=== PATIENT | female | born 1965 | race Caucasian/White ===

== ENCOUNTER 2017-05-30 16:55 | Emergency (ER) | payer BC ==
--- NOTE | 2017-05-30 17:24 | ERNOTE ---
Medical Problem HPI - General Chief Complaint: Screening, Blood Pressure Time Seen by Provider: 05/30/17 17:08 Source: patient Exam Limitations: no limitations - Immun/Allergies/Home Medications Immunizations: IMMUNIZATION HX Immunizations Up to Date Yes History of Influenza Vaccine No Hx Pneumococcal Vaccination No Allergies/Adverse Reactions: Allergies Sulfa (Sulfonamide Antibiotics) [Sulfa(Sulfonamide Antibiotics)] Allergy (Severe , Verified 05/30/17 17:02) rash latex Allergy (Intermediate, Verified 05/30/17 17:02) Hives Home Medications: HOME MEDICATIONS Levothyroxine Sodium [Tirosint] 88 mcg PO DAILY 06/30/15 [Last Taken Unknown] Potassium Chloride [K-Dur] 10 meq PO DAILY 09/30/15 [Last Taken Unknown] Citalopram Hydrobromide [Celexa] 40 mg PO DAILY 10/12/15 [Last Taken Unknown] Cholecalciferol [Vitamin D] 2,000 unit PO DAILY 05/30/17 [Last Taken Unknown] Potassium Chloride [K-Dur] 40 meq PO BID #20 tablet 05/30/17 [Last Taken Unknown ] - History of Present History Narrative: Patient had abdominal pain earlier this morning which has resolved. After she woke up from a nap this afternoon she didn't feel quite right and light headed. When she took her blood pressure it was elevated at 166/99. She was concerned about the pressure and came to the ER. She has not history of HTN, at a check up two months ago her blood pressure was normal Review of Systems - Review of Systems Constitutional: Present: recent illness - seasonal allergies. Absent: fever EYE: Absent: vision changes ENT: Present: nose congestion. Absent: sore throat Respiratory: Absent: shortness of breath, cough Cardiology: Absent: chest pain, palpitations Gastrointestinal/Abdominal: Absent: nausea Genitourinary: Present: no symptoms reported Musculoskeletal: Absent: back pain Neurological: Present: dizziness/light-headedness. Absent: headache, weakness, numbness - Patient's Past Medical History Patient History - Medical: Anemia, Depression, Hypothyroidism, UTI'S, Other Patient History - Cardiac/Respiratory: No pertinent hx Patient History - Cancer: No Hx of Cancer Patient History - Surgical Procedures: Appendectomy, Colon Resection, Hysterectomy, Other Patient History - Other: None LMP (females 10-50): Menopausal - Family History Father Family History - Medical: No pertinent hx Family History - Cardiac/Respiratory: Asthma, Hypertension Mother Family History - Medical: Renal Disease - Social History Living Situations: home Abuse History: No History of abuse Psych History: Hx of Depression, Current tx/ever been on anti-depressants or anti-anxiety meds Smoking Status: Current every day smoker Have you smoked in the past 12 months: Yes Alcohol Use: none Drug Use: none - Immunizations Immunizations Up to Date: Yes Hx Pneumococcal Vaccination: No History of Influenza Vaccine: No Physical Exam - Physical Exam General Appearance: Present: wd/wn, alert, no apparent distress Head Exam: Present: normal inspection Eye Exam: Normal inspection: bilateral, PERRL: bilateral Ears, Nose, Throat: Present: normal ENT inspection, normal pharynx Respiratory: Present: no respiratory distress, normal breath sounds, no accessory muscle use, lungs clear Cardiovascular/Chest: Present: regular rate, rhythm, no murmur Extremity Exam: Present: no edema Neurological Exam: Present: alert, oriented, normal mood/affect, no motor/ sensory deficits Skin Exam: Present: normal color, warm/dry ED Progress - Results and Orders Patient's Lab Results:: I have reviewed the patient's lab results. - Vital Signs Patient's Vital Signs:: I have reviewed the patient's vital signs. Vital Signs: Vital Signs 05/30/17 16:57 Temperature 36.9 C Pulse Rate 85 Respiratory 16 Rate Blood Pressure 159/95 O2 Sat by Pulse 98 Oximetry - Progress/Reassessment Chief Complaint: Screening, Blood Pressure Progress Note-Subjective: 05/30/17 17:59 discussed results with patient and sister patient allergic to sulfa, last culture resistant to macrobid, will hold off on antibiotics will culture results are available Departure Clinical Impression: Hypokalemia, Elevated BP without diagnosis of hypertension - Departure Disposition: Home self-care Condition: Good Instructions: Hypokalemia Additional Instructions: call Dr Mccullough's office tomorrow for an out patient repeat potassium test before the weekend (take 40mEq twice a day for the next four days) for a follow up appointment for your blood pressure record daily blood pressure readings you will be called with the results of the urine culture Referrals: Surya Hastings MD [Primary Care Provider] - Prescriptions: Potassium Chloride [K-Dur] 40 meq PO BID #20 tablet
[2017-05-30 17:27] LABS: Urine Bilirubin Negative (NEGATIVE); Urine Blood Negative /ul (NEGATIVE); Urine Ketone Negative (NEGATIVE); Urine Nitrite Negative (NEGATIVE); Urine Protein Negative (NEGATIVE); Urine Specific Gravity <=1.005 SP.GR. (1.005-1.010); Urine Urobilinogen Normal (NORMAL)
[2017-05-30 17:35] LABS: Hematocrit 39.7 % (37.0-47.0); Hemoglobin 13.1 gm/dL (12.5-16.0); Mean Cell Volume 89.8 fl (78-100); Mean Corpuscular Hemoglobin 29.6 pg (27-31); Mean Platelet Volume 8.7 fl (6.0-9.5); Neutrophil # 6.1 K/mm3 (1.3-6.0); Neutrophil % 62.8 % (42-75.0); Platelet Count 279 K/mm3 (150-450); Red Blood Count 4.42 M/mm3 (4.2-5.4); Red Cell Distribution Width 13.9 % (11.5-14.0); White Blood Count 9.7 K/mm3 (4.0-10.5)
[2017-05-30 17:40] LABS: Urine Appearance Clear; Urine Color Yellow; Urine RBC None Seen /hpf (0-5); Urine WBC 0-5 /hpf (0-5)
[2017-05-30 17:41] LABS: Urine Bacteria TRACE
[2017-05-30 17:51] LABS: Albumin * 3.3 gm/dl (3.4-5.0); Anion Gap 10.3 mmol/L (6.8-13.8); BUN/Creatinine Ratio 9.2 (9.0-21.6); Bilirubin, Total 0.2 mg/dL (0.0-1.1); Ca. Corrected For Albumin 9.1 mg/dL (8.4-10.2); Calcium * 8.9 mg/dL (7.9-10.9); Carbon Dioxide 28.5 mmol/L (24-32.6); Potassium 2.8 mmol/L (3.4-4.6); Total Protein 7.2 gm/dL (6.2-8.2)
[2017-05-30 18:13] VITALS: BP 151/86
== END 2017-05-30 18:05 | disposition home or self-care (01) ==
LOC: ER 16:55
DX: E87.6 Hypokalemia (principal); R03.0 Elevated blood-pressure reading, without diagnosis of hypertension; F17.200 Nicotine dependence, unspecified, uncomplicated

== ENCOUNTER 2019-07-01 11:40 | Observation (INO) ==
[2019-07-01] MEDS ORDERED: METHYLPREDNISOLONE SOD SUCC/PF 125 MG/2 ML VIAL IM ONE (12:58)
[2019-07-01] MEDS ORDERED: ALBUTEROL SULFATE/IPRATROPIUM 3 ML NEBU IH ONE (12:58)
[2019-07-01] MEDS ORDERED: ALBUTEROL SULFATE 2.5 MG/0.5 ML VIAL.NEB IH ONE ×3 (12:59→14:51)
[2019-07-01 13:34] LABS: Hematocrit 43.2 % (37.0-47.0); Hemoglobin 14.5 gm/dL (12.5-16.0); Mean Cell Volume 96.9 fl (78-100); Mean Corpuscular Hemoglobin 32.5 pg (27-31); Mean Corpuscular Hgb Conc 33.6 g/dl (32-36); Mean Platelet Volume 10.6 fl (8-12.5); Neutrophil # 3.1 K/mm3 (1.3-6.0); Neutrophil % 66.8 % (42-75.0); Platelet Count 198 K/mm3 (150-450); Red Blood Count 4.46 M/mm3 (4.2-5.4); White Blood Count 4.6 K/mm3 (4.0-10.5)
[2019-07-01 13:37] LABS: Albumin * 3.6 gm/dl (3.4-5.0); Anion Gap 13.6 mmol/L (6.8-13.8); BUN/Creatinine Ratio 12.4 (9.0-21.6); Bilirubin, Total 0.1 mg/dL (0.0-1.1); Ca. Corrected For Albumin 8.9 mg/dL (8.4-10.2); Calcium * 8.9 mg/dL (7.9-10.9); Carbon Dioxide 27.9 mmol/L (24-32.6); Potassium 3.5 mmol/L (3.4-4.6); Total Protein 7.6 gm/dL (6.2-8.2)
--- NOTE | 2019-07-01 15:36 | ERNOTE ---
Date of Service: 07/01/19 Time Seen by Provider: 07/01/19 12:53 Stated Complaint: coughing, congestion, fever Presenting Symptoms:: cough, other - SOB Source: patient Exam Limitations: no limitations Immunizations: IMMUNIZATION HX Immunizations Up to Date Yes History of Influenza Vaccine No Hx Pneumococcal Vaccination Yes Allergies/Adverse Reactions: Allergies Sulfa (Sulfonamide Antibiotics) [Sulfa(Sulfonamide Antibiotics)] Allergy (Severe, Verified 07/01/19 12:00) rash latex Allergy (Intermediate, Verified 07/01/19 12:00) Hives Home Medications: HOME MEDICATIONS Cholecalciferol [Vitamin D] 2,000 unit PO DAILY 05/30/17 [Last Taken Unknown] levothyroxine 88 mcg tablet 88 mcg PO DAILY #30 tab 07/12/18 [Last Taken Unknown] acetaminophen 500 mg tablet 500 mg PO Q6H PRN 10/05/18 [Last Taken Unknown] albuterol sulfate 0.63 mg/3 mL solution for nebulization 0.63 mg IH BID PRN ml 10/05/18 [Last Taken Unknown] citalopram 40 mg tablet 40 mg PO DAILY #90 tab 10/24/18 [Last Taken Unknown] gabapentin 300 mg capsule 300 mg PO DAILY 10/24/18 [Last Taken Unknown] trazodone 50 mg tablet 50 mg PO HS #90 tab 10/24/18 [Last Taken Unknown] albuterol sulfate 90 mcg/actuation aerosol inhaler 2 inh IH Q8H PRN #18 g 06/29/19 [Last Taken Unknown] benzonatate 100 mg capsule 200 mg PO TID PRN #20 cap 06/29/19 [Last Taken Unknown] - History of Present Ilness Narrative: Patient presents with cough and SOB for 4 days now. Started . Went to walk in clinic but is no better. SOB with exertion. Mostly dry cough. Feverish. No chest pain. No calf pain or leg swelling. Worse with exertion and better with rest. She can her herself wheezing. Timing: constant, getting worse Severity: severe Frequency/Possible Cause: Reports: illness exposure Modifying Factors - Improves: Reports: rest Modifying Factors - Worsens: Reports: activity Associated Symptoms: Reports: cough, shortness of breath, nasal congestion, fever/chills. Denies: sore throat Prior Treatment: Reports: recently seen. Denies: recently hospitalized, currently on antibiotics Review of Systems - Review of Systems Constitutional: Present: fever ENT: Present: See HPI Respiratory: Present: See HPI Cardiology: Absent: chest pain Gastrointestinal/Abdominal: Absent: abdominal pain Genitourinary: Absent: dysuria Neurological: Absent: weakness All Other Systems: All systems neg except as marked Medical History (Last Reviewed 07/01/19 @ 15:35 by Dillon Lord MD) Gross hematuria (Acute) Insomnia (Chronic) Anxiety and depression (Chronic) Colostomy in place (Chronic) Acute abdominal pain (Acute) Vitamin D deficiency (Chronic) Tobacco abuse (Chronic) Peptic ulcer (Chronic) Hypothyroidism (Chronic) Hypokalemia (Chronic) Hypoglycemia (Chronic) Hypertension (Chronic) Hot flashes (Chronic) Fistula (Chronic) Endometriosis (Chronic) Depression (Chronic) Crohns disease (Chronic) Asthma (Chronic) Anemia (Chronic) Anal cancer (Chronic) Allergic rhinitis (Chronic) COPD (chronic obstructive pulmonary disease) with acute bronchitis (Acute) Bronchitis (Acute) Shoulder sprain or strain (Acute) Contact dermatitis due to poison william (Acute) Abdominal pain (Acute) Hypokalemia (Acute) Left shoulder pain (Acute) Ventral hernia without obstruction or gangrene (Acute) Elevated BP without diagnosis of hypertension (Acute) Surgical History: Surgical History (Last Reviewed 07/01/19 @ 15:35 by Dillon Lord MD) H/O oophorectomy right H/O repair of rotator cuff 2015 right shoulder arthrocopy with mini open rotator cuff repair, biceps tendonesis per Dr Pugh Biceps tendon tear H/O esophagogastroduodenoscopy 2007 [place]- duodenitis, gastritis H/O hernia repair 2000 [place] incisional H/O lumpectomy left breast H/O: hysterectomy 1994 abd- (still has left ovary and 1/2 of right) for endometriosis History of appendectomy 2013 History of bowel resection exploratory laparotomy with extensive lysis of adhesions, partial small bowel resection and appendectomy 2013 History of colon resection 1997 2013 2 in of small bowel removed due to ovarian cyst and stricture Sigmoidoscopy exam 2017 Family History: Family History (Last Reviewed 07/01/19 @ 15:35 by Dillon Lord MD) Brother CVA (cerebral vascular accident) Diabetes Hypertension Sister Hypertension Father Cancer age 54 kidney and lung, COPD (chronic obstructive pulmonary disease) Social History: (Last Reviewed 07/01/19 @ 15:35 by Dillon Lord MD) Social History: Marital status: 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 Service: No Tobacco: Smoking Status: Former smoker Alcohol: alcohol intake: former Substance Use: substance use type: does not use Physical Exam - Physical Exam General Appearance: Present: alert, mild distress, other - mnild tachypnea Head Exam: Present: normal inspection, no evidence of injury Eye Exam: Normal inspection: bilateral, PERRL: bilateral Ears, Nose, Throat: Present: normal ENT inspection, nasal congestion Neck: Present: normal inspection Respiratory: Present: wheezing, other - significant I and E wheezing throughout Cardiovascular/Chest: Present: regular rate, rhythm, normal peripheral pulses Gastrointestinal/Abdominal: Present: normal bowel sounds, nontender, soft Back Exam: Absent: CVA tenderness (R), CVA tenderness (L) Extremity Exam: Present: normal inspection, normal range of motion Neurological Exam: Present: alert, no motor/sensory deficits Skin Exam: Present: normal color, warm/dry Progress - Results and Orders Patient's Lab Results:: I have reviewed the patient's lab results. - Vital Signs Patient's Vital Signs:: I have reviewed the patient's vital signs. Vital Signs: Vital Signs 07/01/19 11:57 07/01/19 13:31 07/01/19 13:34 Temperature 36.6 C Pulse Rate 81 87 83 Respiratory Rate 18 18 18 Blood Pressure 153/85 H O2 Sat by Pulse Oximetry 92 L 92 L 94 07/01/19 14:05 07/01/19 14:53 Temperature Pulse Rate 84 92 Respiratory Rate 18 20 Blood Pressure O2 Sat by Pulse Oximetry 93 91 L - X-Ray X-Ray #1 X-Ray: chest Interpretation: Interp. by me X-ray Comments: I reviewed official radiology report - Progress/Reassessment Chief Complaint: Cough Progress Note-Subjective: 07/01/19 15:31 Patient has wheezing despite Duoneb and then 3 stacked Albuterol nebs. After 4 full treatments she was still wheezing and was 89% RA. Placed on 1L NC oxygen. She was ambulated and sats 84% RA, given her hypoxia observation indicated. She is agreeable as she relaetes this is the most SOB she has ever felt. D/W Dr Ania Corea who will admit. Departure Clinical Impression: COPD exacerbation, Hypoxia - Departure Disposition: Still a patient Condition: Stable Referrals: Surya Hastings MD [Primary Care Provider] -
[2019-07-01] MEDS ORDERED: AZITHROMYCIN 500 MG in DEXTROSE 5 % IN WATER 250 ML IV PRN ×2 (15:40)
[2019-07-01] MEDS ORDERED: FLU VACC QS2019-20(6MOS UP)/PF 60 MCG/0.5 ML SYRINGE IM ONE (16:22)
[2019-07-01] MEDS ORDERED: ACETAMINOPHEN 500 MG TABLET PO PRN (16:57)
[2019-07-01] MEDS: ENOXAPARIN SODIUM 40 MG/0.4 ML SYRG SC SCH (17:27)
[2019-07-01] MEDS: TIOTROPIUM BROMIDE 5 CAP INHALER IH SCH (17:27)
[2019-07-01] MEDS: LEVOFLOXACIN 500 MG TABLET PO SCH (17:27)
--- NOTE | 2019-07-01 17:42 | HP ---
Chief Complaint - Chief Complaint Date of Service: 07/01/19 Time of Service: 17:29 Chief Complaint: Dyspnea History of Present Illness: This is a 54-year-old woman with COPD who developed a respiratory illness 4 days ago. It started with shortness of breath, dyspnea on exertion, nonproductive cough and generally feeling ill. Within the last week she has been exposed to children who had upper respiratory tract infections. She steadily worsened. 2 days ago she had a fever up to 101, and visited the walk-in clinic where she was given Tessalon Perles. They did not help, and she continued to deteriorate. Finally this afternoon she came to the emergency room because she was so short of breath. She has had sweats, but no chills. Over the last 2 days her cough has become productive of clear to white foamy phlegm. 3 breathing treatments in the emergency room today allowed her to cough up even more phlegm. She is now feeling modestly better. There is been no chest pain, and no blood in her sputum. She is more comfortable lying down and sitting up. She is extremely dyspneic today with walking. In the emergency room she was given an initial nebulized treatment with albuterol/ipratropium. This was followed by 2 more albuterol treatments. She was given Solu-Medrol 125 mg IM. She was minimally improved after that, so the decision was made to admit her to an observation bed. There is been no pain in her calves or swelling of extremities. 4 days ago she stopped smoking and she said she does not go to start again. Medical History (Last Reviewed 07/01/19 @ 17:33 by Surya Hastings MD) Gross hematuria (Acute) Insomnia (Chronic) Anxiety and depression (Chronic) Colostomy in place (Chronic) Acute abdominal pain (Acute) Vitamin D deficiency (Chronic) Tobacco abuse (Chronic) Peptic ulcer (Chronic) Hypothyroidism (Chronic) Hypokalemia (Chronic) Hypoglycemia (Chronic) Hypertension (Chronic) Hot flashes (Chronic) Fistula (Chronic) Endometriosis (Chronic) Depression (Chronic) Crohns disease (Chronic) Asthma (Chronic) Anemia (Chronic) Anal cancer (Chronic) Allergic rhinitis (Chronic) COPD (chronic obstructive pulmonary disease) with acute bronchitis (Acute) Bronchitis (Acute) Shoulder sprain or strain (Acute) Contact dermatitis due to poison william (Acute) Abdominal pain (Acute) Hypokalemia (Acute) Left shoulder pain (Acute) Ventral hernia without obstruction or gangrene (Acute) Elevated BP without diagnosis of hypertension (Acute) Surgical History: Surgical History (Last Reviewed 07/01/19 @ 17:33 by Surya Hastings MD) H/O oophorectomy right H/O repair of rotator cuff 2016 right shoulder arthrocopy with mini open rotator cuff repair, biceps tendonesis per Dr Pugh Biceps tendon tear H/O esophagogastroduodenoscopy 2007 [place]- duodenitis, gastritis H/O hernia repair 2000 [place] incisional H/O lumpectomy left breast H/O: hysterectomy 1994 abd- (still has left ovary and 1/2 of right) for endometriosis History of appendectomy 2013 History of bowel resection exploratory laparotomy with extensive lysis of adhesions, partial small bowel resection and appendectomy 2013 History of colon resection 1997 2013 2 in of small bowel removed due to ovarian cyst and stricture Sigmoidoscopy exam 2016 Family History: Family History (Last Reviewed 07/01/19 @ 17:33 by Surya Hastings MD) Brother Hypertension Sister Hypertension Father COPD (chronic obstructive pulmonary disease) Cancer age 54 kidney and lung, Social History: (Last Reviewed 07/01/19 @ 16:15 by Tita Moura RN) Social History: Marital status: 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 Service: No Tobacco: Smoking Status: Former smoker Alcohol: alcohol intake: former Substance Use: substance use type: does not use Review Of Systems (GEN) - Review of Systems Generalized/Overall Review: Present: Fever, Fatigue EENTM: Absent: Eye Pain, Blurred Vision Respiratory: Present: Cough, Shortness of Breath, Wheezing Cardiac: Absent: Chest Pain, Edema, Palpitations Abdominal: Absent: Nausea, Vomiting, Abdominal Pain, Constipation, Diarrhea Genitourinary: Absent: Burning, Frequency Musculoskeletal: Absent: Joint Pain, Back Pain Neurological: Absent: Headache, Tremors Skin: Absent: Dryness, Lesions Endocrine: Absent: Intolerance to Cold, Intolerance to Heat Misc: All systems neg except as marked Immunizations: IMMUNIZATION HX Immunizations Up to Date Yes History of Influenza Vaccine No Hx Pneumococcal Vaccination Yes Allergies/Adverse Reactions: Allergies Allergy/AdvReac Type Severity Reaction Status Date / Time Sulfa (Sulfonamide Allergy Severe rash Verified 07/01/19 16:15 Antibiotics) [Sulfa(Sulfonamide Antibiotics)] latex Allergy Intermediate Hives Verified 07/01/19 16:15 Home Medications: HOME MEDICATIONS Cholecalciferol [Vitamin D] 2,000 unit PO DAILY 05/30/17 [Last Taken Unknown] levothyroxine 88 mcg tablet 88 mcg PO DAILY #30 tab 07/12/18 [Last Taken Unknown] acetaminophen 500 mg tablet 500 mg PO Q6H PRN 10/05/18 [Last Taken Unknown] albuterol sulfate 0.63 mg/3 mL solution for nebulization 0.63 mg IH QID ml 10/05/18 [Last Taken Unknown] citalopram 40 mg tablet 40 mg PO DAILY #90 tab 10/24/18 [Last Taken Unknown] trazodone 50 mg tablet 50 mg PO HS #90 tab 10/24/18 [Last Taken Unknown] albuterol sulfate 90 mcg/actuation aerosol inhaler 2 inh IH Q8H PRN #18 g 06/29/19 [Last Taken Unknown] benzonatate 100 mg capsule 200 mg PO TID PRN #20 cap 06/29/19 [Last Taken Unknown] Exam - Exam Vital Signs: Vital Signs - Last Taken Temp 36.9 C 07/01/19 16:17 Pulse 91 07/01/19 17:13 Resp 20 07/01/19 16:17 BP 129/72 07/01/19 16:17 Pulse Ox 93 07/01/19 16:17 Constitutional: Present: Alert, Oriented x3, Cooperative, Well developed, Well nourished, No distress - Although her work of breathing is increased. She has some mild respiratory distress if she tries to move around in the room. ENT Exam: Present: normal ENT inspection, hearing grossly normal, pharynx normal, TMs normal, nasal congestion Eye Exam: bilateral eye: normal inspection, PERRL, EOMI Neck: Present: normal inspection. Absent: lymphadenopathy (R), lymphadenopathy (L), thyromegaly Back Exam: Present: normal inspection Breasts: Present: Exam deferred Respiratory: Present: chest non-tender, wheezing, expiration (prolonged), other - Mild respiratory distress if she begins to move around Cardiovascular/Chest: Present: normal peripheral pulses, regular rate, rhythm, no edema, no gallop, no JVD, no murmur Peripheral Pulses: carotid (R): 1+, carotid (L): 1+, dorsalis-pedis (R): 1+, dorsalis-pedis (L): 1+ Abdomen: Present: Normal bowel sounds, soft, nontender, nondistended, no hepatospenomegaly, no masses /Rectal: Present: Exam deferred Extremity: Present: normal range of motion, non-tender, normal inspection, no calf tenderness, normal capillary refill Skin Exam: Present: normal color, warm/dry, no cyanosis Lymphatic: Present: no adenopathy Neurologic: Present: normal mood/affect. Absent: motor weakness, depressed affect Appearance: Present: appropriate appearance, appropriate insight, neat, no memory impairment Eye contact: Present: cooperative, good eye contact, normal speech Thoughts: Present: normal thought pattern Diagnostic Studies: Abnormal Lab Results 07/01/19 07/01/19 Range/Units 13:17 13:17 MCH 32.5 H (27-31) pg Monocytes % 9.3 H (0.0-9) % Lymphocytes # 0.96 L (1.5-3.5) k/mm3 Alkaline Phosphatase 194 H (50-170) U/L Laboratory Results WBC 4.6 K/mm3 (4.0-10.5) 07/01/19 13:17 RBC 4.46 M/mm3 (4.2-5.4) 07/01/19 13:17 Hgb 14.5 gm/dL (12.5-16.0) 07/01/19 13:17 Hct 43.2 % (37.0-47.0) 07/01/19 13:17 MCV 96.9 fl (78-100) 07/01/19 13:17 MCH 32.5 pg (27-31) H 07/01/19 13:17 MCHC 33.6 g/dl (32-36) 07/01/19 13:17 RDW 14.0 % (11.5-14.0) 07/01/19 13:17 Plt Count 198 K/mm3 (150-450) 07/01/19 13:17 MPV 10.6 fl (8-12.5) 07/01/19 13:17 Immature Gran % (Auto) 0.20 % (0.001-0.429) 07/01/19 13:17 Immature Gran # (Auto) 0.01 K/mm3 (0.000-0.0310) 07/01/19 13:17 Neutrophils % 66.8 % (42-75.0) 07/01/19 13:17 Lymphocytes % 20.7 % (20-51) 07/01/19 13:17 Monocytes % 9.3 % (0.0-9) H 07/01/19 13:17 Eosinophils % 2.8 % (0.0-3.0) 07/01/19 13:17 Basophils % 0.2 % (0.0-1.0) 07/01/19 13:17 Nucleated RBC % 0.0 k/mm3 (0-1) 07/01/19 13:17 Neutrophils # 3.1 K/mm3 (1.3-6.0) 07/01/19 13:17 Lymphocytes # 0.96 k/mm3 (1.5-3.5) L 07/01/19 13:17 Monocytes # 0.4 k/mm3 (0.0-1.0) 07/01/19 13:17 Eosinophils # 0.1 k/mm3 (0.0-0.7) 07/01/19 13:17 Absolute Basophils 0.0 k/mm3 (0.0-0.1) 07/01/19 13:17 Sodium 140 mmol/L (132-142) 07/01/19 13:17 Plasma Sodium 140 mmol/L (130-142) 07/01/19 13:17 Potassium 3.5 mmol/L (3.4-4.6) 07/01/19 13:17 Chloride 102 mmol/L (97-106) 07/01/19 13:17 Carbon Dioxide 27.9 mmol/L (24-32.6) 07/01/19 13:17 Anion Gap 13.6 mmol/L (6.8-13.8) 07/01/19 13:17 BUN 11 mg/dL (3-23) 07/01/19 13:17 Creatinine 0.89 mg/dL (0.4-1.4) 07/01/19 13:17 Est GFR (Non-Af Amer) 71 mL/min (60-130) 07/01/19 13:17 BUN/Creatinine Ratio 12.4 (9.0-21.6) 07/01/19 13:17 Random Glucose 97 mg/dL (70-110) 07/01/19 13:17 Calcium 8.9 mg/dL (7.9-10.9) 07/01/19 13:17 Calcium Adj for Albumin 8.9 mg/dL (8.4-10.2) 07/01/19 13:17 Total Bilirubin 0.1 mg/dL (0.0-1.1) 07/01/19 13:17 AST 35 U/L (0-48) 07/01/19 13:17 ALT 19 U/L (19-67) 07/01/19 13:17 Alkaline Phosphatase 194 U/L (50-170) H 07/01/19 13:17 Total Protein 7.6 gm/dL (6.2-8.2) 07/01/19 13:17 Albumin 3.6 gm/dl (3.4-5.0) 07/01/19 13:17 Influenza Type A Ag Negative (NEGATIVE) 07/01/19 12:00 Influenza Type B Ag Negative (NEGATIVE) 07/01/19 12:00 Group A Strep Rapid Negative (NEGATIVE) 07/01/19 12:00 Assessment/Plan - Narrative Narrative: I reviewed her labs. CBC is essentially normal. Chemistries show a slight elevation in alk phos which we will follow-up at some time following discharge. Her chest x-ray report describes no evidence of pneumonia or pulmonary edema. - Assessment/Plan (1) COPD exacerbation Assessment: The plan will be continued parenteral steroids, oral antibiotics and supplemental oxygen as needed. We will add Spiriva and continue as needed albuterol. Perhaps she will be ready for discharge tomorrow. This depends on her hospital course overnight. Her lab work is sufficiently normal that she requires no additional lab work tomorrow morning. Problem: Acute (2) Exercise hypoxemia Assessment: Most likely due to this exacerbation of COPD. We expect this to resolve once her bronchitis resolves. Problem: Acute (3) Hypoxia Assessment: Related to her acute bronchitis. Problem: Acute (4) Tobacco abuse Assessment: We have strongly urged her to stop smoking. She seems to be in the mood for that at the present time. Problem: Chronic
[2019-07-01] MEDS: ALBUTEROL SULFATE 2.5 MG/0.5 ML VIAL.NEB IH PRN ×2 (18:03→20:44)
[2019-07-01] MEDS ORDERED: traZODone HCL 50 MG TABLET PO SCH (21:00)
[2019-07-02] MEDS: METHYLPREDNISOLONE SOD SUCC/PF 40 MG/ML VIAL IV SCH ×3 (05:07→17:12)
[2019-07-02] MEDS ORDERED: LEVOTHYROXINE SODIUM 88 MCG TABLET PO SCH (07:00)
--- NOTE | 2019-07-02 07:04 | PN ---
Subjective - Date and Time Seen Date: 07/02/19 Time: 06:58 Subjective Narrative: This is a 54-year-old woman with COPD who developed a respiratory illness 5 days ago. It started with shortness of breath, dyspnea on exertion, nonproductive cough and generally feeling ill. Within the last week she has been exposed to children who had upper respiratory tract infections. She steadily worsened. 3 days ago she had a fever up to 101, and visited the walk-in clinic where she was given Tessalon Perles. They did not help, and she continued to deteriorate. Finally yesterday afternoon she came to the emergency room because she was so short of breath. She has had sweats, but no chills. Over the last 3 days her cough has become productive of clear to white foamy phlegm. 3 breathing treatments in the emergency room yesterday allowed her to cough up even more phlegm. This morning she is considerably better than yesterday evening. She is less short of breath both at rest and with ambulation to the bathroom. Her lungs feel looser when she can cough up phlegm more easily. Her O2 sat just now was 97% on 2 L of nasal cannula oxygen. Objective - Review of Systems Generalized/Overall Review: Reports: Fatigue EENTM: Denies: Eye Pain, Blurred Vision Respiratory: Reports: Cough, Shortness of Breath, Wheezing Cardiac: Denies: Chest Pain, Edema Abdominal: Denies: Nausea, Vomiting, Abdominal Pain, Constipation, Diarrhea Genitourinary Symptoms: Denies: Burning, Frequency Musculoskeletal Complaints: Denies: Joint Pain, Back Pain Neurological: Denies: Headache, Anxiety, Depressed Skin: Denies: Dryness, Lesions, Rash Endocrine: Denies: Intolerance to Cold, Intolerance to Heat - Vitals Vitals: Last Vital Signs Temp 36.5 C 07/02/19 06:44 Pulse 70 07/02/19 06:44 Resp 18 07/02/19 06:44 BP 145/64 H 07/02/19 06:44 Pulse Ox 98 07/02/19 06:44 - Abnormal Lab Findings Abnormal Lab Findings: Abnormal Lab Results 07/01/19 07/01/19 Range/Units 13:17 13:17 MCH 32.5 H (27-31) pg Monocytes % 9.3 H (0.0-9) % Lymphocytes # 0.96 L (1.5-3.5) k/mm3 Alkaline Phosphatase 194 H (50-170) U/L - Exam Constitutional: Present: Alert, Oriented x3, Cooperative, Well developed, Well nourished, No distress ENT Exam: Present: normal ENT inspection, hearing grossly normal Neck: Present: non-tender, full range of motion, normal inspection. Absent: lymphadenopathy (R), lymphadenopathy (L), thyromegaly Respiratory: Present: chest non-tender, no respiratory distress, wheezing - Wheezing is less tight than yesterday Cardiovascular/Chest: Present: regular rate, rhythm, no edema, no gallop, no JVD, no murmur Abdomen: Present: Normal bowel sounds, soft, nontender, nondistended, no rebound tenderness, no hepatospenomegaly, no masses /Rectal: Present: Exam deferred Extremity: Present: normal inspection, no pedal edema Skin Exam: Present: normal color, warm/dry, no cyanosis Lymphatic: Present: no adenopathy Neurologic: Present: normal mood/affect. Absent: abnormal gait Appearance: Present: appropriate appearance, appropriate insight, neat, no memory impairment Eye contact: Present: cooperative, good eye contact, normal speech Thoughts: Present: normal thought pattern Assessment/Plan Plan Narrative: She continues to improve. The plan for today will be to continue her present treatment, except we will now begin to taper her supplemental oxygen. If we can completely discontinue it by this evening, I will send her home. She is supposed to work tomorrow night and in fact the next 4 nights, but we have advised she needs to take that time off to recover. - Problems/Diagnosis (1) COPD exacerbation Problem: Acute (2) Exercise hypoxemia Problem: Acute (3) Hypoxia Problem: Acute (4) Tobacco abuse Problem: Chronic Narrative: She still intends to stop smoking.
[2019-07-02] MEDS: ALBUTEROL SULFATE 2.5 MG/0.5 ML VIAL.NEB IH PRN ×2 (07:22→14:59)
[2019-07-02] MEDS ORDERED: CITALOPRAM HYDROBROMIDE 20 MG TABLET PO SCH (09:00)
[2019-07-02] MEDS ORDERED: CHOLECALCIFEROL 1,000 UNIT CAPSULE PO SCH (09:00)
[2019-07-02] MEDS ORDERED: GABAPENTIN 300 MG CAPSULE PO SCH (09:00)
[2019-07-02] MEDS: TIOTROPIUM BROMIDE 5 CAP INHALER IH SCH (09:11)
[2019-07-02] MEDS: LEVOFLOXACIN 500 MG TABLET PO SCH (09:25)
[2019-07-02] MEDS ORDERED: FLU VACC QS2019-20(6MOS UP)/PF 60 MCG/0.5 ML SYRINGE IM ONE (11:00)
--- NOTE | 2019-07-02 17:09 | PN ---
Progess Note - Interim Date: 07/02/19 Time: 17:07 Narrative: 07/02/19 17:07 To whom it may concern: Lyndsey Quinones (date of 1965) has had a recent exacerbation of her chronic lung disease. She remains ill enough so that she should refrain from working tomorrow night and the subsequent 3 nights. She should be able to work again early next week. Sincerely yours, Surya Corea MD
[2019-07-02] MEDS: ENOXAPARIN SODIUM 40 MG/0.4 ML SYRG SC SCH (17:12)
--- NOTE | 2019-07-02 17:25 | DS ---
(1) COPD exacerbation Problem: Acute (2) Exercise hypoxemia Diagnosis(s): Most recently O2 sats are 96% on room air when walking. It turns out that her ear is a more accurate determination of O2 saturation than her fingers. Problem: Resolved (3) Hypoxia Problem: Resolved (4) Tobacco abuse Problem: Chronic Date of Discharge:: 07/02/19 Description of Stay: In the emergency room, she was given 3 aerosol treatments, which helped minimally. She was also given 1 dose of Solu-Medrol 125 mg IM. She was admitted to the hospital and started on levofloxacin daily. She required O2 supplementation in order to keep her O2 saturations in the normal range. She steadily improved. Today we successfully weaned her off supplemental oxygen. She feels much better. Her lungs sound about 70% improved over this morning. She is up and around walking. She has a good appetite and is eating well. She plans to completely stop smoking. She still has wheezing, and so needs some time off work to completely recover. I will send her home on tiatropium every day, and a 10-day course of prednisone and levofloxacin. Her vitals are stable and her most recent O2 sat while walking on room air is 96%. Procedures Performed: none Results and Findings: Pending Mircobiology Results 07/01/19 15:55 Blood Blood Culture - Preliminary NO GROWTH 24 HOURS 07/01/19 15:30 Blood Blood Culture - Preliminary NO GROWTH 24 HOURS Lab Pending Results 07/01/19 12:00: Influenza Type A Ag Negative, Influenza Type B Ag Negative 07/01/19 12:00: Group A Strep Rapid Negative 07/01/19 13:17: WBC 4.6, RBC 4.46, Hgb 14.5, Hct 43.2, MCV 96.9, MCH 32.5 H, MCHC 33.6, RDW 14.0, Plt Count 198, MPV 10.6, Immature Gran % (Auto) 0.20, Immature Gran # (Auto) 0.01, Neutrophils % 66.8, Lymphocytes % 20.7, Monocytes % 9.3 H, Eosinophils % 2.8, Basophils % 0.2, Nucleated RBC % 0.0, Neutrophils # 3.1, Lymphocytes # 0.96 L, Monocytes # 0.4, Eosinophils # 0.1, Absolute Basophils 0.0 07/01/19 13:17: Sodium 140, Plasma Sodium 140, Potassium 3.5, Chloride 102, Carbon Dioxide 27.9, Anion Gap 13.6, BUN 11, Creatinine 0.89, Est GFR (Non-Af Amer) 71, BUN/Creatinine Ratio 12.4, Random Glucose 97, Calcium 8.9, Calcium Adj for Albumin 8.9, Total Bilirubin 0.1, AST 35, ALT 19, Alkaline Phosphatase 194 H, Total Protein 7.6, Albumin 3.6 Discharge Location: Home Disposition: Home self-care Condition: Stable Discharge Activity: Activity as tolerated Discharge Diet: General/regular food Referrals: Surya Hastings MD [Primary Care Provider] - Additional Patient Instructions (free text): Please call if you have any problems or questions. Please see me in the office in about 1 week. Complete Home Medications List: Complete Home Medication List: Cholecalciferol [Vitamin D] 2,000 unit PO DAILY 05/30/17 levothyroxine 88 mcg tablet 88 mcg PO DAILY #30 tab 07/12/18 acetaminophen 500 mg tablet 500 mg PO Q6H PRN 10/05/18 citalopram 40 mg tablet 40 mg PO DAILY #90 tab 10/24/18 trazodone 50 mg tablet 50 mg PO HS #90 tab 10/24/18 Albuterol Sulfate [Albuterol Sulfate 2.5 MG/0.5ML] 1 vial INHALATION Q2H PRN #100 vial 07/02/19 Albuterol Sulfate [Proventil Hfa] 2 inh INHALATION Q2H PRN #18 g 07/02/19 Levofloxacin [Levaquin] 750 mg PO DAILY #10 tab 07/02/19 Tiotropium [place] [Spiriva] 1 cap INHALATION DAILY #30 cap 07/02/19 predniSONE [Prednisone] 30 mg PO BID #60 tab.ds.pk 07/02/19 traZODone HCL [Desyrel] 50 mg PO HS tablet 07/02/19
[2019-07-02 18:11] VITALS: BP 137/69
== END 2019-07-02 18:35 | disposition home or self-care (01) ==
LOC: MS 11:40 → ER 11:40 → MS 16:05
PROVIDERS: ADMIT Allergy & Immunology; ATTEND Allergy & Immunology
DX: F17.210 Nicotine dependence, cigarettes, uncomplicated; R09.02 Hypoxemia; Z23 Encounter for immunization; E03.9 Hypothyroidism, unspecified; J44.0 Chronic obstructive pulmonary disease with (acute) lower respiratory infection; J20.9 Acute bronchitis, unspecified; I10 Essential (primary) hypertension; J44.1 Chronic obstructive pulmonary disease with (acute) exacerbation; J45.991 Cough variant asthma
CPT/HCPCS: 36415; 71020; 71046; 80053; 85025; 87040; 87081; 87400; 87430; 87449; 90686; 94640; 94664; 96365; 96372; 96375; 99285; G0008; G0378